=== PATIENT | male | born 1970 | race Caucasian/White ===

== ENCOUNTER 2019-02-22 12:16 | Emergency (ER) | payer SELFPAY ==
[~2019-02-22] VITALS: Ht 188 cm; Wt 106.4 kg
[2019-02-22 12:18] VITALS: BP 153/85
--- NOTE | 2019-02-22 13:24 | NUR ---
PT PROVIDED URINE CUP AND WATER, AWAITING SPECIMEN. CALL LIGHT WITHIN REACH, WARM BLANKET PROVIDED.
--- NOTE | 2019-02-22 13:33 | NUR ---
URINE COLLECTED/SENT TO LAB.
[2019-02-22 13:40] LABS: MICROSCOPIC NOT IND
[2019-02-22 13:43] LABS: CULTURE INDICATED? NO
--- NOTE | 2019-02-22 13:59 | NUR ---
ADD ON ORDER FOR US.
--- NOTE | 2019-02-22 14:50 | NUR ---
US COMPLETED, AWAITING READ.
--- NOTE | 2019-02-22 15:05 | NUR ---
US RESULTS BACK,PT FOR RECHECK.
== END 2019-02-22 15:29 | disposition home or self-care (01) ==
LOC: ED 15:10
DX: N48.89 Other specified disorders of penis (principal)
CPT/HCPCS: 76857; 81003; 99284